=== PATIENT | male | born 1970 | race Caucasian/White ===

== ENCOUNTER → 2018-03-21 11:40 | Outpatient (REF) | payer MEDICAID, SELFPAY ==
[2018-03-21 20:25] LABS: Abs Immature Grans 0.01 k/cumm (0.0-0.09); Absolute Basophil Count 0.03 k/cumm (0.0-0.2); Absolute Eosinophil Count 0.03 k/cumm (0.0-0.7); Absolute Lymphocyte Count 0.96 k/cumm (1.2-3.4); Absolute Monocyte Count 0.65 k/cumm (0.11-0.7); Absolute Neutrophil Count 6.34 k/cumm (1.2-6.7); Basophils % 0.4; Eosinophils % 0.4; HCT 49.3 % (40.0-50.0); HGB 16.9 g/dL (13.5-17.5); Immature Grans % 0.1; Mean Corp. HGB Concentration 34.3 g/dL (32.0-36.0); Mean Corpuscular Hemoglobin 32.4 pg (27.0-33.0); Mean Corpuscular Volume 94.4 fL (80-95); Mean Platelet Volume 10.1 fL (8.0-11.0); Monocytes % 8.1; Platelet Count 235 x1000/uL (130-400); RBC 5.22 m/cumm (4.50-6.00); RBC Distribution Width 12.7 % (11.8-14.1); White Blood Cell Count 8.02 k/cumm (4.4-10.8)
[2018-03-21 21:14] LABS: ALT 35 U/L (12-78); AST 42 U/L (15-37); Albumin 3.9 g/dL (3.4-5.0); Alkaline Phosphatase 99 U/L (46-116); Anion Gap 11.5 mmol/L (3-11); BUN 6 mg/dL (7-18); Bilirubin, Total 0.5 mg/dL (0.2-1.0); CO2 24.5 mmol/L (21.0-32.0); CREATININE 0.92 mg/dL (0.70-1.30); Calcium 8.7 mg/dL (8.5-10.1); Chloride 104 mmol/L (98-107); Glucose 84 mg/dL (70-100); Potassium 4.3 mmol/L (3.5-5.1); Sodium 140 mmol/L (136-145); Vitamin B12 363 pg/mL (193-986)
[2018-03-21 21:52] LABS: ESR 3 MM/HR (0-15)
== END ==
LOC: NCHCN 11:40
PROVIDERS: PCP Nurse Practitioner Family; Visit Provider Nurse Practitioner Family
DX: R49.0 Dysphonia (principal); R56.9 Unspecified convulsions; F10.10 Alcohol abuse, uncomplicated
CPT/HCPCS: 80053; 85652; 82607; 84443; 85025

== ENCOUNTER 2018-03-22 08:44 | Outpatient (REF) | payer MEDICAID, SELFPAY ==
[2018-03-22 12:48] LABS: Prothrombin Time 9.9 sec (9.3-10.8)
== END 2018-03-22 08:45 ==
LOC: NCHCN 08:44
PROVIDERS: PCP Nurse Practitioner Family; Visit Provider Nurse Practitioner Family
DX: F10.10 Alcohol abuse, uncomplicated (principal)
CPT/HCPCS: 85610

== ENCOUNTER 2018-05-16 08:58 | Outpatient (REF) | payer MEDICAID, SELFPAY ==
[2018-05-16 13:32] LABS: Anion Gap 9.1 mmol/L (3-11); BUN 15 mg/dL (7-18); CO2 26.9 mmol/L (21.0-32.0); CREATININE 0.88 mg/dL (0.70-1.30); Calcium 8.9 mg/dL (8.5-10.1); Chloride 105 mmol/L (98-107); Glucose 108 mg/dL (70-100); Potassium 4.3 mmol/L (3.5-5.1); Sodium 141 mmol/L (136-145)
[2018-05-17 16:16] LABS: Levetiracetam 19.1 mcg/mL
== END 2018-05-16 09:18 ==
LOC: NCHCN 08:58
PROVIDERS: PCP Nurse Practitioner Family; Visit Provider Nurse Practitioner Family
DX: R56.9 Unspecified convulsions (principal); F10.10 Alcohol abuse, uncomplicated; F17.209 Nicotine dependence, unspecified, with unspecified nicotine-induced disorders; Z51.81 Encounter for therapeutic drug level monitoring; Z79.899 Other long term (current) drug therapy
CPT/HCPCS: 80048; 80177

== ENCOUNTER 2018-07-19 02:55 | Outpatient (CLI) | payer MEDICAID, SELFPAY ==
--- NOTE | 2018-07-30 09:45 | PDOC.EEG ---
EEG: [facility] Department of Neurology LONG-TERM AMBULATORY EEG REPORT Date of Recordin07/19/18 at 10:13:35 to 07/21/18 at 06:58:05 Interpreting Physician: Dr. Abiola Reid PCP/Referring Provider: Candice Yun NP Reason for study: Mr. Ross is a 48 year-old man with a history of alcohol abuse, reported seizures, and more recent nocturnal events manifested by generalized shaking. Current Medications: gabapentin [Neurontin] 300 mg PO HS 09/09/16 ibuprofen 600 mg PO Q6H PRN #15 tab 09/09/16 naproxen sodium [Aleve] 220 mg PO PRN PRN 09/09/16 multivitamin tablet 1 tab PO DAILY 05/20/18 omeprazole 20 mg capsule,delayed release 20 mg PO DAILY 05/20/18 thiamine HCl (vitamin B1) 100 mg tablet 100 mg PO DAILY 05/20/18 levetiracetam 500 mg tablet 500 mg PO BID tab 07/03/18 naltrexone 50 mg tablet 50 mg PO PRN tab 07/03/18 METHODS: An 18-channel digitized electroencephalogram was recorded in the ambulatory setting with video. The 10/20 international system of electrode placement was used and bipolar and referential electrode montages were recorded. In addition to EEG the patient was monitored for EKG and by video. Activation procedures of photic stimulation and hyperventilation were performed if applicable. The duration of the recording was ~44.5 hours. DESCRIPTION OF EEG: Waking background activity: During maximal wakefulness a 10-Hz posterior background rhythm was present which was well-modulated, symmetrical, reactive to eye opening, and of moderate voltage. Faster frequencies were present in the bilateral anterior head regions. There was a normal anterior-posterior voltage gradient. Drowsy and sleeping background activity: During drowsiness, there was attenuation of the posterior dominant background rhythm and vertex waves. Normal stage II and III sleep was present with symmetrical sleep spindles, K-complexes, and vertex waves with slowing of the background rhythm to delta/theta frequencies. REM sleep manifested by rapid lateral eye movements and faster background rhythms was recorded. Arousal was unremarkable. There were frequent nocturnal arousals. Interictal abnormalities: none. Ictal findings: No events were recorded. Activating Procedures: Photic stimulation was performed which produced a symmetrical posterior driving response at various flash frequencies. Hyperventilation was performed with moderate effort and produced no physiological slowing of the background. EKG: EKG revealed normal sinus rhythm. INTERPRETATION: This long-term EEG is normal during the awake and sleep states as well as during the activation procedures. Frequent nocturnal arousals during sleep. PRIOR EEG: none CLINICAL CORRELATION: No focal regions of cerebral dysfunction or epileptiform activity was present. Epilepsy remains a clinical diagnosis and a normal EEG does not rule out epilepsy. There were noted frequent nocturnal arousals. Clinical correlation is advised. Abiola Reid MD
== END 2018-07-19 03:15 ==
PROVIDERS: PCP Nurse Practitioner Family; Visit Provider Psychiatry & Neurology Neurology
DX: R56.9 Unspecified convulsions (principal)
CPT/HCPCS: 95953

== ENCOUNTER 2018-07-25 09:21 | Outpatient (REF) | payer MEDICAID, SELFPAY ==
[2018-07-25 13:18] LABS: ALT 26 U/L (12-78); AST 18 U/L (15-37); Albumin 3.9 g/dL (3.4-5.0); Alkaline Phosphatase 85 U/L (46-116); Bilirubin, Direct 0.19 mg/dL (0.00-0.20); Bilirubin, Total 0.6 mg/dL (0.2-1.0); Total Protein 7.5 g/dL (6.4-8.2)
== END 2018-07-25 09:41 ==
LOC: NCHCN 09:21
PROVIDERS: PCP Nurse Practitioner Family; Visit Provider Nurse Practitioner Family
DX: F10.10 Alcohol abuse, uncomplicated (principal); F17.209 Nicotine dependence, unspecified, with unspecified nicotine-induced disorders; R56.9 Unspecified convulsions
CPT/HCPCS: 80076

== ENCOUNTER 2019-07-10 11:57 | Outpatient (REF) | payer MEDICAID, SELFPAY ==
[2019-07-12 15:17] LABS: Levetiracetam 15.9 mcg/mL
== END 2019-07-10 12:17 ==
LOC: NCHCN 11:57
PROVIDERS: PCP Nurse Practitioner Family; Visit Provider Nurse Practitioner Family
DX: R56.9 Unspecified convulsions (principal); Z51.81 Encounter for therapeutic drug level monitoring; K30 Functional dyspepsia; F10.10 Alcohol abuse, uncomplicated; F17.209 Nicotine dependence, unspecified, with unspecified nicotine-induced disorders
CPT/HCPCS: 80177

== ENCOUNTER 2019-08-26 15:27 | Outpatient (REF) | payer MEDICAID, SELFPAY ==
[2019-08-26 21:50] LABS: HCT 45.3 % (40.0-50.0); HGB 15.4 g/dL (13.5-17.5); Mean Corpuscular Hemoglobin 31.6 pg (27.0-33.0); Platelet Count 239 x1000/uL (130-400); RBC 4.87 m/cumm (4.50-6.00); White Blood Cell Count 5.57 k/cumm (4.4-10.8)
[2019-08-26 22:12] LABS: ALT 36 U/L (16-63); AST 22 U/L (15-37); Albumin 3.7 g/dL (3.4-5.0); Alkaline Phosphatase 98 U/L (46-116); Anion Gap 11.5 mmol/L (3-11); BUN 13 mg/dL (7-18); Bilirubin, Total 0.5 mg/dL (0.2-1.0); CO2 24.5 mmol/L (21.0-32.0); CREATININE 1.23 mg/dL (0.70-1.30); Calcium 8.6 mg/dL (8.5-10.1); Chloride 101 mmol/L (98-107); Glucose 106 mg/dL (74-106); Lipase 76 U/L (73-393); Sodium 137 mmol/L (136-145); Total Protein 7.2 g/dL (6.4-8.2)
== END 2019-08-26 15:47 ==
LOC: NCHCN 15:27
PROVIDERS: PCP Nurse Practitioner Family; Visit Provider Internal Medicine
DX: R10.30 Lower abdominal pain, unspecified (principal); R19.7 Diarrhea, unspecified; R11.2 Nausea with vomiting, unspecified
CPT/HCPCS: 80053; 83690; 85027

== ENCOUNTER 2019-09-01 13:31 | Outpatient (REF) | payer MEDICAID, SELFPAY ==
[2019-09-02 11:00] LABS: Campylobacter PCR Negative (Negative); Salmonella PCR Negative (Negative); Shiga Toxin PCR Negative (Negative); Shigella/Enteroinvasive Ecoli Negative (Negative)
== END 2019-09-01 13:51 ==
LOC: NCHCN 13:31
PROVIDERS: PCP Nurse Practitioner Family; Visit Provider Internal Medicine
DX: R19.7 Diarrhea, unspecified (principal)
CPT/HCPCS: 87329; 87505; 82272; 83630; 86674

== ENCOUNTER 2021-06-09 13:38 | Outpatient (REF) | payer MEDICAID, SELFPAY ==
[2021-06-10 11:40] LABS: COVID-19 RT-PCR UVMMC Result Negative (Negative)
== END 2021-06-09 13:39 | disposition home or self-care (01) ==
LOC: NCHCN 13:38
PROVIDERS: PCP Nurse Practitioner Family; Visit Provider Nurse Practitioner Family
DX: Z20.822 Contact with and (suspected) exposure to COVID-19 (principal)
CPT/HCPCS: U0003

== ENCOUNTER 2022-09-24 08:42 | Emergency (ER) | payer MEDICAID, SELFPAY ==
[2022-09-24 08:47] VITALS: BP 153/94; PULSE 104; RESP 18; TEMP 36.9; O2SAT 95
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
[2022-09-24] MEDS: Ketorolac 15 MG/ML VIAL IM (09:15)
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
== END 2022-09-24 11:20 | disposition home or self-care (01) ==
PROVIDERS: Emergency Provider Emergency Medicine; PCP Nurse Practitioner Family
DX: S49.92XA Unspecified injury of left shoulder and upper arm, initial encounter (principal); V00.221A Fall from sled, initial encounter
CPT/HCPCS: 96372; 99283; 73030; 73060; J1885

== ENCOUNTER 2022-10-16 01:54 | Outpatient (CLI) | payer MEDICAID, SELFPAY ==
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
== END 2022-10-16 02:14 ==
LOC: DI 01:54
PROVIDERS: PCP Nurse Practitioner Family; Visit Provider Student in an Organized Health Care Education/Training Program
DX: M25.512 Pain in left shoulder (principal); M75.22 Bicipital tendinitis, left shoulder; M75.102 Unspecified rotator cuff tear or rupture of left shoulder, not specified as traumatic; M25.412 Effusion, left shoulder
CPT/HCPCS: 73221

== ENCOUNTER 2023-04-09 18:30 | Outpatient (REF) | payer MEDICAID, SELFPAY ==
[2023-04-09 16:03] LABS: Calculated LDL 89 mg/dL (<100); Cholesterol 149 mg/dL (<200); HDL Cholesterol 44 mg/dL (40-60); Triglyceride 82 mg/dL (<150)
== END 2023-04-09 18:31 | disposition home or self-care (01) ==
LOC: NCHCN 18:30
PROVIDERS: PCP Nurse Practitioner Family; Visit Provider Nurse Practitioner Family
DX: Z00.00 Encounter for general adult medical examination without abnormal findings (principal); R03.0 Elevated blood-pressure reading, without diagnosis of hypertension; J30.2 Other seasonal allergic rhinitis; R56.9 Unspecified convulsions; F10.10 Alcohol abuse, uncomplicated; F17.210 Nicotine dependence, cigarettes, uncomplicated
CPT/HCPCS: 80061